=== PATIENT | male | born 1995 | race Caucasian/White ===

== ENCOUNTER 2016-12-03 17:32 | Emergency (ER) | payer SELFPAY ==
[~2016-12-03] VITALS: Ht 175.2 cm; Wt 68.0 kg
[~2016-12-03 17:32] MED LIST: HYDROCODONE BIT1 T11 PO; PERCOCET 325 MG1 TA2 PO
[2016-12-03] MEDS ORDERED: FLONASE ALLERG9.9 ML NAS (17:44)
[2016-12-03] MEDS ORDERED: ZITHROMAX250 MG PO (17:44)
[2016-12-03] MEDS ORDERED: CLARITIN-D 12 H1 TAB PO (17:44)
== END 2016-12-03 17:48 | disposition home or self-care (01) ==
LOC: ED 17:32
DX: J01.90 Acute sinusitis, unspecified (principal); F17.200 Nicotine dependence, unspecified, uncomplicated; Z88.1 Allergy status to other antibiotic agents

== ENCOUNTER 2017-10-30 12:09 | Emergency (ER) | payer SELFPAY ==
[~2017-10-30] VITALS: Ht 180.3 cm; Wt 59.0 kg
[~2017-10-30 12:09] MED LIST changes: +CLARITIN-D 12 H1 TAB PO; +FLONASE ALLERG9.9 ML NAS; +ZITHROMAX250 MG PO
[2017-10-30 12:56] LABS: BASO # 0.1 10*3/uL (0.0-0.1); BASO % 0.5 % (0.0-1.0); EOS # 0.7 10*3/uL (0.0-0.4); HEMATOCRIT 43.2 % (42.0-52.0); HEMOGLOBIN 13.9 g/dl (14.0-18.0); LYMPH # 2.1 10*3/uL (1.3-4.4); LYMPH % 22.5 % (27.0-41.0); MEAN CELL VOLUME 91.3 fl (80.0-94.0); MEAN CORPUSCULAR HGB 29.4 pg (27.0-31.0); MEAN CORPUSCULAR HGB CONC 32.2 g/dl (33.0-37.0); MEAN PLATELET VOLUME 9.3 fl (9.6-12.3); MONO # 1.1 10*3/uL (0.1-1.0); MONO % 11.6 % (3.0-9.0); NEUT # 5.4 10*3/uL (2.3-7.9); PLATELET COUNT AUTOMATED 225 10*3/uL (130-400); RED BLOOD COUNT 4.73 10*6/uL (4.50-5.90); RED CELL DISTRI WIDTH 14.1 % (0-14.5); WHITE BLOOD COUNT 9.2 10*3/uL (4.8-10.8)
[2017-10-30 13:04] LABS: INTERNATIONAL NORM RATIO 0.9 (2.0-3.5)
[2017-10-30 13:12] LABS: ALBUMIN 3.8 gm/dl (3.1-4.5); ALKALINE PHOSPHATASE 105 U/L (45-117); BUN 7 mg/dl (7-24); CHLORIDE 102 mmol/L (98-107); CREATININE 0.89 mg/dL (0.70-1.30); POTASSIUM 4.3 mmol/L (3.5-5.1); SGOT/AST 22 IU/L (3-35); SGPT/ALT 34 U/L (12-78); SODIUM 138 mmol/L (136-145); TOTAL PROTEIN 7.4 gm/dL (6.4-8.2)
[2017-10-30 13:14] LABS: ETHYL ALCOHOL < 3.0 mg/dl (<3); TROPONIN I < 0.015 ng/ml (<0.045)
== END 2017-10-30 17:16 | disposition home or self-care (01) ==
LOC: ED 12:09
PROVIDERS: Physician Assistant
DX: R55 Syncope and collapse (principal); F17.200 Nicotine dependence, unspecified, uncomplicated; Z88.1 Allergy status to other antibiotic agents

== ENCOUNTER → 2017-11-17 | Outpatient (CLI) | payer MEDICAID | END | disposition home or self-care (01) | LOC: RESCLI 00:29 | DX: R56.9 Unspecified convulsions (principal); Z76.89 Persons encountering health services in other specified circumstances; Z71.6 Tobacco abuse counseling; Z72.0 Tobacco use ==

== ENCOUNTER 2018-03-01 01:22 | Emergency (ER) | payer OTHER ==
[~2018-03-01] VITALS: Ht 170.1 cm; Wt 68.0 kg
--- NOTE | ~2018-03-01 | EKG ---
[place], [place] ELECTROCARDIOGRAM REPORT NAME: CAROLYNE MCRAE UNIT #: [id number] ROOM: DOCTOR: EPIPHANY DRAFT REPORT BIRTHDATE: [birth year] [facility] Test Date: 2018-03-01 Test Time: 01:40:03 Pat Name: CAROLYNE MCRAE Department: Room: Gender: Operating Cost Clerk: Tia Fung : 1995 Requested By: JOSE PENNINGTON Order Number: [id number] Reading MD: Jayjay Howard MD Measurements Intervals [place] Rate: 124 P: 58 MA: 130 QRS: 33 QRSD: 89 T: 28 QT: 331 QTc: 476 Interpretive Statements Sinus tachycardia ST depr, consider ischemia, anterolateral lds or related to rate Electronically Signed On 03-01-2018 6:28:48 PDT by Jayjay Howard MD CM:EKGRPT:ELECTROCARDIOGRAM REPORT [id number] JOSE MOROCHO DRAFT REPORT JOSE PENNINGTON DO
[2018-03-01 01:31] LABS: BILIRUBIN NEGATIVE (NEGATIVE); BLOOD TRACE-INTACT (NEGATIVE); CLARITY CLEAR (CLEAR); COLOR YELLOW (YELLOW); GLUCOSE NEGATIVE (NEGATIVE); KETONE NEGATIVE (NEGATIVE); LEUKO ESTERASE NEGATIVE (NEGATIVE); NITRITE NEGATIVE (NEGATIVE); SPECIFIC GRAVITY <= 1.005 (1.005-1.030); UROBILINOGEN 0.2 E.U./dl (0.2-1.0)
[2018-03-01 01:33] LABS: BASO # 0.1 10*3/uL (0.0-0.1); BASO % 0.7 % (0.0-1.0); EOS # 0.4 10*3/uL (0.0-0.4); EOS % 3.1 % (1.0-4.0); HEMATOCRIT 43.9 % (42.0-52.0); LYMPH # 4.6 10*3/uL (1.3-4.4); LYMPH % 38.9 % (27.0-41.0); MEAN CELL VOLUME 93.6 fl (80.0-94.0); MEAN CORPUSCULAR HGB 29.9 pg (27.0-31.0); MEAN CORPUSCULAR HGB CONC 31.9 g/dl (33.0-37.0); MEAN PLATELET VOLUME 9.7 fl (9.6-12.3); MONO # 0.5 10*3/uL (0.1-1.0); MONO % 4.5 % (3.0-9.0); NEUT # 6.1 10*3/uL (2.3-7.9); PLATELET COUNT AUTOMATED 279 10*3/uL (130-400); RED BLOOD COUNT 4.69 10*6/uL (4.50-5.90); RED CELL DISTRI WIDTH 14.2 % (0-14.5); WHITE BLOOD COUNT 11.9 10*3/uL (4.8-10.8)
[2018-03-01 01:39] LABS: URINE AMPHETAMINES < 1000 (1000ng/ml); URINE BARBITURATES < 200 (200ng/ml); URINE BENZODIAZEPINES < 200 (200ng/ml); URINE CANNABINOIDS (THC) > 50 (50ng/ml); URINE COCAINE < 300 (300ng/ml); URINE METHADONE < 300 (300ng/ml); URINE OPIATES > 300 (300ng/ml); URINE PHENCYCLIDINE < 25 (25ng/ml)
[2018-03-01 01:42] LABS: WBC 0-2 wbc/hpf (0-5)
[2018-03-01 01:50] LABS: ALBUMIN 4.1 gm/dl (3.1-4.5); ALKALINE PHOSPHATASE 81 U/L (45-117); BUN 12 mg/dl (7-24); CHLORIDE 106 mmol/L (98-107); CREATININE 1.71 mg/dL (0.70-1.30); POTASSIUM 4.4 mmol/L (3.5-5.1); SGOT/AST 41 IU/L (3-35); SGPT/ALT 34 U/L (12-78); SODIUM 142 mmol/L (136-145); TOTAL PROTEIN 7.9 gm/dL (6.4-8.2)
[2018-03-01 01:56] LABS: TROPONIN I < 0.015 ng/ml (<0.045)
== END 2018-03-01 03:25 | disposition left against medical advice (07) ==
LOC: ED 01:22
PROVIDERS: Student in an Organized Health Care Education/Training Program
DX: T40.1X1A Poisoning by heroin, accidental (unintentional), initial encounter (principal); N17.9 Acute kidney failure, unspecified; R94.31 Abnormal electrocardiogram [ECG] [EKG]; R40.20 Unspecified coma; Z88.1 Allergy status to other antibiotic agents; Y92.89 Other specified places as the place of occurrence of the external cause

== ENCOUNTER 2018-09-10 14:22 | Emergency (ER) | payer MEDICAID ==
[~2018-09-10] VITALS: Ht 175.2 cm; Wt 64.4 kg
[2018-09-10] MEDS ORDERED: NAPROSYN500 MG PO (14:47)
[2018-09-10] MEDS ORDERED: CHLORZOXAZONE500 M2 PO (14:47)
[2019-03-20] MEDS ORDERED: KEFLEX500 M1 PO (18:49)
== END 2018-09-10 16:10 | disposition home or self-care (01) ==
LOC: ED 14:22
DX: M54.6 Pain in thoracic spine (principal); R03.0 Elevated blood-pressure reading, without diagnosis of hypertension; M62.838 Other muscle spasm; M25.512 Pain in left shoulder; F17.200 Nicotine dependence, unspecified, uncomplicated; Z88.1 Allergy status to other antibiotic agents

== ENCOUNTER 2019-09-15 22:09 | Emergency (ER) | payer MEDICAID ==
[~2019-09-15] VITALS: Wt 61.2 kg
[~2019-09-15 22:09] MED LIST changes: +CHLORZOXAZONE500 M2 PO; +KEFLEX500 M1 PO; +NAPROSYN500 MG PO
== END 2019-09-16 00:14 | disposition home or self-care (01) ==
LOC: ED 22:09
DX: G56.22 Lesion of ulnar nerve, left upper limb (principal); J45.909 Unspecified asthma, uncomplicated; Z88.1 Allergy status to other antibiotic agents; Z79.899 Other long term (current) drug therapy

== ENCOUNTER 2020-04-09 21:06 | Emergency (ER) | payer OTHER ==
[~2020-04-09] VITALS: Wt 65.9 kg
[2020-04-09 22:07] LABS: ARTERIAL BLOOD GAS PH 6.805 (7.35-7.45)
[2020-04-09 22:08] LABS: ABG BASE EXCESS -21.6 mmol/L (-2.0-2.0)
[2020-04-09 22:10] LABS: HEMATOCRIT 37.2 % (42.0-52.0); MEAN CELL VOLUME 98.7 fl (80.0-94.0); MEAN CORPUSCULAR HGB 29.4 pg (27.0-31.0); MEAN CORPUSCULAR HGB CONC 29.8 g/dl (33.0-37.0); NUCLEATED RED BLOOD CELL 0.1 % (0.0-0.0); PLATELET COUNT AUTOMATED 183 10*3/uL (130-400); RED BLOOD COUNT 3.77 10*6/uL (4.50-5.90); RED CELL DISTRI WIDTH 13.1 % (0-14.5)
[2020-04-09 22:29] LABS: ALBUMIN 2.4 gm/dl (3.1-4.5); ALKALINE PHOSPHATASE 83 U/L (45-117); BUN 10 mg/dl (7-24); CHLORIDE 104 mmol/L (98-107); CREATININE 1.47 mg/dL (0.70-1.30); POTASSIUM 5.3 mmol/L (3.5-5.1); SGOT/AST 123 IU/L (3-35); SGPT/ALT 113 U/L (12-78); SODIUM 138 mmol/L (136-145); TOTAL PROTEIN 5.5 gm/dL (6.4-8.2)
[2020-04-09 22:32] LABS: TROPONIN I 0.625 ng/ml (<0.045)
[2020-04-09 22:38] LABS: TOTAL CELLS COUNTED 100 #CELLS
[2020-04-09 22:39] LABS: PLATELET SUFFICIENCY NORMAL (NORMAL)
[2020-04-09 22:46] LABS: ACETAMINOPHEN (TYLENOL) < 5.0 ug/ml (10-30)
[2020-04-09 23:08] LABS: URINE AMPHETAMINES > 1000 (1000ng/ml); URINE BARBITURATES < 200 (200ng/ml); URINE BENZODIAZEPINES < 200 (200ng/ml); URINE CANNABINOIDS (THC) > 50 (50ng/ml); URINE COCAINE < 300 (300ng/ml); URINE METHADONE < 300 (300ng/ml); URINE OPIATES > 300 (300ng/ml)
[2020-04-09 23:11] LABS: URINE PHENCYCLIDINE < 25 (25ng/ml)
[2020-04-09 23:14] LABS: BILIRUBIN NEGATIVE; BLOOD NEGATIVE (NEGATIVE); CLARITY CLOUDY (CLEAR); COLOR YELLOW (YELLOW); GLUCOSE NEGATIVE; KETONE NEGATIVE; LEUKO ESTERASE NEGATIVE (NEGATIVE); NITRITE NEGATIVE (NEGATIVE)
== END 2020-04-10 01:00 | disposition expired ==
LOC: ED 21:06
PROVIDERS: Emergency Medicine
DX: I46.9 Cardiac arrest, cause unspecified (principal); Z79.899 Other long term (current) drug therapy; Z88.8 Allergy status to other drugs, medicaments and biological substances